=== PATIENT | male | born 1940 | race Caucasian/White ===

== ENCOUNTER 2024-09-04 13:40 | Emergency (ER) | payer MEDICARE | END 2024-09-04 16:05 | disposition home or self-care (01) | LOC: CSHERS 13:40 | DX: S40.021A Contusion of right upper arm, initial encounter (principal); I10 Essential (primary) hypertension; J44.9 Chronic obstructive pulmonary disease, unspecified; Z55.0 Illiteracy and low-level literacy; Z87.891 Personal history of nicotine dependence; X58.XXXA Exposure to other specified factors, initial encounter ==

== ENCOUNTER 2025-06-22 12:17 | Outpatient (CLI) | payer MEDICARE | END 2025-06-22 12:18 | disposition home or self-care (01) | LOC: CSHCP 12:17 | PROVIDERS: ATTEND Internal Medicine | DX: J44.9 Chronic obstructive pulmonary disease, unspecified (principal); R09.02 Hypoxemia | CPT/HCPCS: 94060; 94618; 94726; 94729 ==